=== PATIENT | male | born 1995 | race Two or more races ===

== ENCOUNTER 2021-01-25 20:41 | Emergency (ER) | payer OTHER ==
[~2021-01-25] VITALS: Ht 172.7 cm; Wt 81.6 kg
[2021-01-25] MEDS ORDERED: ONDANSETRON HCL/PF 4 MG/2 ML VIAL ONE (20:52)
[2021-01-25] MEDS ORDERED: IBUPROFEN 600 MG TABLET ONE (20:53)
--- NOTE | 2021-01-25 20:54 | NUR ---
PT BIBLAPD C/O LEFT SIDED CP THAT RADIATES TO BACK X4HRS. PT AAOX4 BREATHING EVENLY AND UNLABORED. PT ATTACHED TO MONITOR AND POX. PT STATES THAT HE ALSO HAS LLQ PAIN. SKIN WARM AND DRY. RT AC 20G INITATED AND BLOOD SENT TO LAB. PT GIVEN BLANKET AND CALL LIGHT WTIHIN REACH
[2021-01-25] MEDS ORDERED: IBUPROFEN 600 MG TABLET PO ONE (21:00)
[2021-01-25] MEDS ORDERED: ONDANSETRON HCL/PF 4 MG/2 ML VIAL IVP ONE (21:00)
[2021-01-25] MEDS ORDERED: IV NS 0.9% 1,000 ML BAG IV ONE (21:00)
--- NOTE | 2021-01-25 21:11 | NUR ---
XRAY AT BEDSIDE
[2021-01-25 21:32] LABS: BASOPHILS % (AUTO) 0.6 % (0.0-2.0); EOSINOPHILS % (AUTO) 4.1 % (0.0-6.0); HEMATOCRIT 49 % (39-51); HEMOGLOBIN 16.8 g/dL (13.5-17.5); LYMPHOCYTES # (AUTO) 3.2 K/uL (0.8-4.8); LYMPHOCYTES % (AUTO) 39.4 % (20.0-44.0); MEAN CORPUSCULAR HGB CONC 34 g/dl (31.0-36.0); MEAN CORPUSCULAR VOLUME 87 fL (80-96); MONOCYTES # (AUTO) 0.5 K/uL (0.1-1.30); MONOCYTES % (AUTO) 6.5 % (2.0-12.0); NEUTROPHILS % (AUTO) 49.4 % (43.0-81.0); PLATELET COUNT (AUTO) 285 K/uL (150-450); RED BLOOD CELL COUNT(AUTO) 5.64 MIL/uL (4.5-6.0); WHITE BLOOD COUNT (AUTO) 8.1 K/uL (4.3-11.0)
[2021-01-25 22:09] LABS: CALCIUM, SERUM 9.1 mg/dL (8.5-10.1); CARBON DIOXIDE 27 mmol/L (21-32); CHLORIDE 103 mmol/L (98-107); CREATININE 0.9 mg/dL (0.6-1.3); GLUCOSE 82 mg/dL (74-106); SODIUM SERUM 140 mmol/L (136-145); UREA NITROGEN, BLOOD 15 mg/dL (7-18)
--- NOTE | 2021-01-25 22:11 | NUR ---
CALLED LAB TO F/U ON CHEM RESULTS
[2021-01-25 22:14] LABS: ALANINE AMINOTRANSFERASE 23 U/L (12-78); ALKALINE PHOSPHATASE 92 U/L (46-116); ASPARTATE AMINOTRANSFERASE 15 U/L (15-37); BILIRUBIN,DIRECT 0.1 mg/dL (0.0-0.2); BILIRUBIN,TOTAL 0.4 mg/dL (0.2-1.0); TOTAL PROTEIN, SERUM 7.4 g/dL (6.4-8.2)
[2021-01-25] MEDS ORDERED: IBUP-1955 PO (22:26)
--- NOTE | 2021-01-25 22:53 | NUR ---
called to f/u on lipase
[2021-01-25] MEDS ORDERED: ACET-2605 PO (23:03)
[2021-01-25] MEDS ORDERED: ONDA4TAB5 PO (23:03)
--- NOTE | 2021-01-25 23:15 | NUR ---
US AT BEDSIDE
--- NOTE | 2021-01-25 23:41 | NUR ---
Patient discharged to home in stable condition. Written and verbal after care instructions given. Patient verbalizes understanding of instruction. IV removed. Catheter intact and site benign. Pressure and 4x4 applied to site. No bleeding noted. Pt ambulatory with a steady gait
[2021-01-25 23:46] VITALS: BP 105/68
== END 2021-01-25 23:41 | disposition home or self-care (01) ==
LOC: ER 20:45
DX: K85.90 Acute pancreatitis without necrosis or infection, unspecified (principal)
CPT/HCPCS: 36415; 71045; 76705; 80048; 80076; 83690; 84484; 85025; 93005; 96361; 96374; 99285; J2405; J7030